=== PATIENT | female | born 1970 | race Caucasian/White ===

== ENCOUNTER 2022-01-14 09:21 | Outpatient (CLI) | payer OTHER, SELFPAY ==
[2022-01-14 11:03] LABS: Cholesterol* 211 mg/dL (90-199); HDL Cholesterol* 59 mg/dL (>=50); LDL Cholesterol Calculated 136 mg/dL (<100); Triglycerides* 79 mg/dL (40-149)
[2022-01-15 10:36] LABS: Glucose* 96 mg/dL (60-115)
== END 2022-01-14 09:22 | disposition home or self-care (01) ==
LOC: NFLDREF 09:22
PROVIDERS: PCP Obstetrics & Gynecology; Visit Provider Physician Assistant
DX: Z00.00 Encounter for general adult medical examination without abnormal findings (principal); Z13.6 Encounter for screening for cardiovascular disorders; Z13.1 Encounter for screening for diabetes mellitus
CPT/HCPCS: 80061; 82947

== ENCOUNTER 2023-04-11 15:09 | Outpatient (CLI) | payer BC, SELFPAY ==
--- NOTE | 2023-04-11 15:20 | CRLHL7_ITS ---
For Patients: As a result of the Century Cures Act, medical imaging exams and procedure reports are released immediately into your electronic medical record. You may view this report before your referring provider. If you have questions, please contact your health care provider. BILATERAL SCREENING MAMMOGRAM WITH COMPUTER-AIDED DETECTION TECHNIQUE: CC and MLO views were obtained. These mammographic images have been obtained using full-field digital technique. These mammographic images were interpreted with the benefit of computer-aided detection. COMPARISON FILM: 08/04/21, 01/16/18, 06/29/16. FINDINGS: The breasts are heterogeneously dense, which may obscure small masses IMPRESSION: There is no radiographic evidence for malignancy. ASSESSMENT: BI-RADS Category 1: Negative RECOMMENDATION: Routine screening mammogram in 1 year. A lay language report of this examination will be provided to the patient. Burak Headley M.D. Diagnostic Radiologist [email or web address] ZENOBIA/bret R: 04/12/2023: Transcribed: 1:44 p.m. RHYS/Dictated by: Burak Headley MD @ 04/12/2023 12:24:00 PM (Electronically Signed)
== END 2023-04-11 15:10 | disposition home or self-care (01) ==
LOC: MAMMO 15:11
PROVIDERS: PCP Obstetrics & Gynecology; Visit Provider Obstetrics & Gynecology
DX: Z12.31 Encounter for screening mammogram for malignant neoplasm of breast (principal); R92.2 Inconclusive mammogram
CPT/HCPCS: 77067